=== PATIENT | male | born 1980 | race African-American/Black ===

== ENCOUNTER 2018-06-02 22:40 | Emergency (ER) | payer MEDICAID ==
[~2018-06-02] VITALS: Ht 172.7 cm; Wt 74.8 kg
[2018-06-02 23:03] VITALS: BP 138/91
--- NOTE | 2018-06-02 23:05 | NUR ---
ED Nurse Note: Pt states he feels buring and hurting when he urine in restroom for 1 day. Pt refused to tell nurse he had sex with someone or not. pt reports no abnormalities to penis.
--- NOTE | 2018-06-02 23:17 | Emergency Room Report ---
History of Present Illness General Chief Complaint: Male Urogenital Problems Source: Patient Present Illness HPI Patient presents with complaints of dribbling sensation from the penis also some burning with urination Denies any testicular pain denies any rash patient does report other sexual contacts without 100% protection Denies any neck pain or photophobia denies any rash denies any chest pain or shortness of breath denies any vomiting or diarrhea symptoms ongoing for the past several days Allergies: Coded Allergies: No Known Allergies (Unverified , 06/02/18) Patient History Past Medical History: see triage record Pertinent Family History: none Reviewed Nursing Documentation: PMH: Agreed; PSxH: Agreed Nursing Documentation-PMH Past Medical History: No Stated History Review of Systems All Other Systems: negative except mentioned in HPI Physical Exam Vital Signs Date Time Temp Pulse Resp B/P (MAP) Pulse Ox O2 Delivery O2 Flow Rate FiO2 06/02/18 22:56 98.4 91 18 138/91 98 Room Air Sp02 EP Interpretation: reviewed, normal General Appearance: well appearing, no apparent distress Head: normocephalic, atraumatic Eyes: bilateral eye PERRL, bilateral eye EOMI ENT: hearing grossly normal, normal pharynx, TMs + canals normal, uvula midline Neck: full range of motion, supple, no meningismus, no bony tend Respiratory: lungs clear, normal breath sounds, no rhonchi, no respiratory distress, no retraction, no accessory muscle use Cardiovascular #1: normal peripheral pulses, regular rate, rhythm, no edema, no gallop, no JVD, no murmur Gastrointestinal: normal bowel sounds, non tender, soft, no mass, no organomegaly, non-distended, no guarding, no hernia, no pulsatile mass, no rebound Genitourinary: no CVA tenderness Musculoskeletal: normal inspection Neurologic: oriented x3, responsive, card hanger III-XII nml as tested, motor strength/ tone normal, sensory intact Psychiatric: mood/affect normal Skin: normal color, no rash, warm/dry, palpation normal Lymphatic: normal inspection, no adenopathy Medical Decision Making Diagnostic Impression: Primary Impression: Urethritis ER Course Patient has clinical symptoms consistent with urethritis Patient was treated symptomatically in the emergency room It was discussed with him that this does not test for other pathology such as HIV or syphilis it also does not treat for these diagnoses Patient is provided with outpatient clinic follow-up requires close follow-up Last Vital Signs Date Time Temp Pulse Resp B/P (MAP) Pulse Ox O2 Delivery O2 Flow Rate FiO2 06/02/18 23:03 98.4 78 18 138/91 98 Room Air Status: improved Disposition: HOME, SELF-CARE Condition: Improved Scripts Doxycycline Monohydrate* (DOXYCYCLINE MONOHYDRATE*) 100 Mg Capsule 100 MG ORAL Q12H, #14 CAP 0 Refills Prov: Shawnee Florez DO 06/02/18 Additional Instructions: Patient is provided with the discharge instructions notified to follow up with primary doctor in the next 2-3 days otherwise return to the er with any worsening symptoms. Please note that this report is being documented using [employer] technology. This can lead to erroneous entry secondary to incorrect interpretation by the dictating instrument. Shawnee Florez DO Jun 02, 2018 23:17
--- NOTE | 2018-06-02 23:23 | NUR ---
ED Nurse Note: Pt is transfered to [facility] in [facility] bed.
[2018-06-02] MEDS: Azithromycin 250mg tab ORAL ONE (23:26)
[2018-06-02] MEDS: Lidocaine 1% MPF 10mg/ml 5ml INJ ONE (23:27)
[2018-06-02] MEDS ORDERED: DOXYCYCLINE MO100 MG ORAL (23:29)
--- NOTE | 2018-06-02 23:33 | NUR ---
ED Nurse Note: pt is d/c per ermd order, pt is aox4, on room air, with stable vital signs. pt was given dc , pt was able to verbalize understanding, pt id band and iv site removed without complications. pt is able to ambulate with steady gait. pt took all belongings.
[2018-06-02 23:34] VITALS: BP 138/91
== END 2018-06-02 23:33 | disposition home or self-care (01) ==
LOC: EMR 23:15
DX: N34.2 Other urethritis (principal); F17.200 Nicotine dependence, unspecified, uncomplicated
CPT/HCPCS: 96372; 96374; 99284; J0696; Q0144